=== PATIENT | female | born 1935 | race African-American/Black ===

== ENCOUNTER 2016-12-22 19:10 | Emergency (ER) | payer MEDICARE ==
[~2016-12-22] VITALS: Ht 157.5 cm; Wt 75.0 kg
[~2016-12-22 19:10] MED LIST: ASA; CARVEDILOL; FUROSEMIDE; LOSARTAN; TELM80TA3
[2016-12-22 20:40] LABS: BASOPHILS % 0.4 % (0.0-2.0); EOSINOPHILS % 1.2 % (0.0-5.0); HEMOGLOBIN. 10.9 g/dL (12.0-16.0); LYMPHOCYTES % 27.2 % (20.0-50.0); MEAN CORPUSCULAR HEMOGLOBIN 26.9 pg (28.0-32.0); MEAN CORPUSCULAR VOLUME 83.9 fL (81.0-99.0); MEAN PLATELET VOLUME 9.6 fl (7.4-10.4); MONOCYTES % 8.8 % (2.0-8.0); NEUTROPHILS % 62.4 % (40.0-76.0); PLATELET 178 x1000/uL (130-400); RED BLOOD CELL COUNT 4.06 mill/uL (4.2-5.4); RED CELL DISTRIBUTION WIDTH 14.4 % (11.6-14.6); WHITE BLOOD COUNT 7.5 x1000/uL (4.5-11.0)
[2016-12-22 20:51] LABS: ALANINE AMINOTRANSFERASE 15 IU/L (13-61); ALBUMIN 3.3 g/dL (3.4-5.0); ANION GAP 12; CALCIUM 8.9 mg/dL (8.5-10.1); CARBON DIOXIDE 24 mEq/L (21-32); CHLORIDE 108 mEq/L (98-107); INDEX HEMOLYSI 1 (1-3); INDEX ICTERIC 1 (1-4); INDEX LIPEMIC 1 (1-3); UREA NITROGEN BLOOD 12 mg/dL (7-21); eGFR > 60 mL/min (>60)
[2016-12-22 20:54] LABS: TROPONIN I 0.05 ng/mL (0.00-0.04)
[2016-12-23 01:53] VITALS: BP 132/52
== END 2016-12-23 01:55 | disposition home or self-care (01) ==
LOC: ER 20:12
DX: I10 Essential (primary) hypertension (principal); I50.9 Heart failure, unspecified; I25.2 Old myocardial infarction; Z95.0 Presence of cardiac pacemaker; Z88.0 Allergy status to penicillin
CPT/HCPCS: 36415; 80053; 84484; 85025; 93005; 99285